=== PATIENT | male | born 1980 | race Hispanic/Latino ===

== ENCOUNTER 2017-08-09 00:54 | Emergency (ER) | payer SELFPAY ==
[2017-08-09 04:06] LABS: BASOPHILS % (AUTO) 0.9 % (0.0-5.0); EOSINOPHILS % (AUTO) 3.2 % (0.0-8.0); HEMATOCRIT 46.6 % (42-54); MEAN CORPUSCULAR HEMOGLOBIN 32.8 pg (27.0-33.0); MEAN CORPUSCULAR HGB CONC 35.2 g/dL (32.0-36.0); MEAN CORPUSCULAR VOLUME 93.2 fL (79-99); NEUTROPHILS % (AUTO) 67.9 % (40.0-77.0); PLATELET COUNT (AUTO) 290 K/uL (130-400); RED CELL DISTRIBUTION WIDTH 12.7 % (11.0-15.5); WHITE BLOOD COUNT (AUTO) 11.4 K/uL (4.8-10.8)
[2017-08-09 04:10] LABS: POTASSIUM 3.5 mmol/L (3.5-5.1)
[2017-08-09 04:15] LABS: ALBUMIN 3.4 g/dL (3.5-5.0); BILIRUBIN,TOTAL 0.2 mg/dL (0.2-1.0); TOTAL PROTEIN, SERUM 7.6 g/dL (6.0-8.3)
[2017-08-09] MEDS ORDERED: IPRATROPIUM/ALBUTEROL SULFATE 3 ML SOLUTION IH ONE (04:24)
[2017-08-09 05:30] LABS: INR 0.91 (0.85-1.15); PARTIAL THROMBOPLASTIN TIME 31.3 SEC (26.3-35.5); PROTHROMBIN TIME 9.6 SEC (9.6-11.6)
== END 2017-08-09 05:55 | disposition home or self-care (01) ==
LOC: EDH 00:54
DX: J20.9 Acute bronchitis, unspecified (principal); R04.2 Hemoptysis; I83.90 Asymptomatic varicose veins of unspecified lower extremity; Z72.0 Tobacco use
CPT/HCPCS: 36415; 71046; 80053; 85025; 85610; 85730; 94640